=== PATIENT | male | born 1940 | race Caucasian/White ===

== ENCOUNTER 2021-01-28 12:21 | Emergency (ER) | payer MEDICARE ==
[~2021-01-28] VITALS: Ht 180.3 cm; Wt 111.8 kg
[~2021-01-28 12:21] MED LIST: ALLO300T2 PO; AMLO1TAB14 PO; ASPI-1265 PO; ATOR10TA87 PO; FEXO180T94 PO; FLO0.4C PO; FURO-149 PO; METF-900 PO; MULT-1085 PO; NEBI10TA2 PO; POTA20TA19 PO; UBID100C16 PO; VIT1CAPS
[2021-01-28 12:40] VITALS: BP 162/60
[2021-01-28 15:33] LABS: CLARITY,URINE CLOUDY (Clear); COLOR,URINE YELLOW (Yellow); GLUCOSE, URINE NEGATIVE (Neg); KETONES,URINE NEGATIVE (Neg); LEUKOCYTE ESTERASE ,URINE SMALL (Neg); NITRITES, URINE POSITIVE (Neg); OCCULT BLOOD,URINE SMALL (Neg); PROTEIN,URINE 100 mg/dl (Neg)
[2021-01-28 15:37] LABS: UA COLLECTION TYPE FOLEY CATH
[2021-01-28 15:41] LABS: BACTERIA,URINE 3+ /HPF (Neg); MUCUS STRANDS NONE SEEN /LPF (Neg); RENAL CELLS, URINE FEW /HPF; SQUAMOUS EPITHELIAL CELL,UR NONE SEEN /LPF (FEW); WBC CLUMPS,URINE MODERATE /HPF (NEGATIVE); WBC,URINE TNTC /HPF (0-4)
[2021-01-28] MEDS ORDERED: sulfamethoxazole/trimethoprim DS (800/160mg) tablet PO ONE (15:45)
[2021-01-28] MEDS ORDERED: SULF1TAB45 PO (15:47)
== END 2021-01-28 16:09 | disposition home or self-care (01) ==
LOC: ER 12:22
DX: Z46.6 Encounter for fitting and adjustment of urinary device (principal); I50.9 Heart failure, unspecified; I11.0 Hypertensive heart disease with heart failure; Z88.0 Allergy status to penicillin; Z79.899 Other long term (current) drug therapy
CPT/HCPCS: 81001; 87077; 87088; 87186; 99283